=== PATIENT | male | born 1965 | race Two or more races ===

== ENCOUNTER → 2020-11-15 | Outpatient (CLI) | payer OTHER ==
--- NOTE | 2020-11-15 11:07 | RADIOLOGY REPORT (SQ) ---
EXAM DESCRIPTION: CT LUNG CANCER SCREENING IMAGES COMPLETED DATE/TIME: 11/15/2020 10:39 am REASON FOR STUDY: CURRENT SMOKER COMPARISON: None. TECHNIQUE: Low Dose CT scan performed of the chest without intravenous contrast for purposes of scre ening for lung cancer. Images reviewed with lung, soft tissue and bone windows. Reconstructed coron al and sagittal MPR images reviewed. All images stored on PACS. All CT scanners at this facility use dose modulation, iterative reconstruction, and/or weight based d osing when appropriate to reduce radiation dose to as low as reasonably achievable (ALARA). [facility]: Dose Right [facility]: CareDose [facility]: Dose Right [facility]: Teradose 4D [facility]: Projjix RADIATION DOSE: DLP: 122.72mGy-cm CTDIvol: 2.80mGy LIMITATIONS: No technical limitations. FINDINGS: LUNGS : Clear and evenly aerated without focal consolidation, suspicious nodule/mass, sign ificant interstitial lung disease, pleural effusion, or pneumothorax. AIRWAYS: Clear. ABHI AND MEDIASTINUM: No identified masses or adenopathy nodes. PLEURA: No pleural effusion or pneumothorax. HEART: Normal in size. No pericardial effusion.No significant coronary artery calcifications. MAJOR VESSELS: Unremarkable. UPPER ABDOMEN: No significant findings. LOWER NECK: No masses. No adenopathy. CHEST WALL: No masses. BONES: No suspicious lytic or blastic osseous lesions. OTHER: No other significant findings. IMPRESSION: 1. NO SIGNIFICANT FINDING ON NON-CONTRASTED CHEST CT. 2. NO OTHER CLINICALLY SIGNIFICANT/POTENTIALLY CLINICALLY SIGNIFICANT FINDINGS LUNGRADS: LUNGRADS: 1 NEGATIVE. NO NODULES, OR DEFINITELY BENIGN NODULES MODIFIER: None. RECOMMENDATION: Continue annual screening with LDCT in 12 months. COMMENT: CRITERIA: No lung nodules. Nodules with specific calcifications: Complete, central, popcorn, concentric rings and fat containin g nodules. TECHNICAL DOCUMENTATION: JOB ID: [id number] Quality ID # [id number]: Final reports with documentation of one or more dose reduction techniques (e.g., Au tomated exposure control, adjustment of the mA and/or kV according to patient size, use of iterative reconstruction technique) 2010 [facility] Radiology Reading location - IP/workstation name: [email or web address]
== END ==
LOC: RAD 10:23
PROVIDERS: ATTEND Clinical Nurse Specialist Adult Health
DX: Z12.2 Encounter for screening for malignant neoplasm of respiratory organs (principal); F17.210 Nicotine dependence, cigarettes, uncomplicated
CPT/HCPCS: 71271